=== PATIENT | male | born 1955 | race Caucasian/White ===

== ENCOUNTER 2022-08-24 06:04 | Inpatient (IN) ==
--- NOTE | 2022-07-16 13:58 | PAT Medication Instructions ---
Medication Instructions Date of Service July 16, 2022 Home Medications atorvastatin 20 mg tablet (Lipitor) 20 mg PO QPM esomeprazole magnesium 40 mg capsule,delayed release (Nexium) 40 mg PO QAM finasteride 5 mg tablet 5 mg PO DAILY tamsulosin 0.4 mg capsule 0.4 mg PO QAM aspirin 81 mg tablet,delayed release 81 mg PO QAM multivitamin 1 tab PO QAM oxycodone-acetaminophen 5 mg-325 mg tablet 1 tab PO TID Continue as directed finasteride 5 mg tablet 5 mg PO DAILY ASK your prescriber and surgeon aspirin 81 mg tablet,delayed release 81 mg PO QAM DO NOT take the morning of surgery multivitamin 1 tab PO QAM Take morning of surgery With a small sip of water, OTHERWISE NOTHING TO EAT OR DRINK AFTER MIDNIGHT: esomeprazole magnesium 40 mg capsule,delayed release (Nexium) 40 mg PO QAM tamsulosin 0.4 mg capsule 0.4 mg PO QAM oxycodone-acetaminophen 5 mg-325 mg tablet 1 tab PO TID Take evening before surgery atorvastatin 20 mg tablet (Lipitor) 20 mg PO QPM oxycodone-acetaminophen 5 mg-325 mg tablet 1 tab PO TID Other Notes If you have any questions please call us at [phone] or [phone] or [phone] or [phone]
--- NOTE | 2022-07-22 08:31 | Anesthesiology Consultation ---
Date of Service July 22, 2022 Assessment & Plan (1) Encounter for pre-operative examination: - pt reports sinus drainage, cough productive of brown sputum without hemoptysis and hoarseness, evaluated by primary care and Rx azithromycin. PCR COVID test at [facility] visit: negative. Pt instructed to call office if symptoms are not fully resolved 1-2 days before surgery. Chart Review Chart Review: Acceptable Risk for Surgery and Patient NOT seen in Pre Admission Testing Teaching & Discussion Pre-Anesthesia Teaching/Discussion Notes: Instructed NPO after midnight before surgery, except medications with 15 cc of water. Medication instructions provided according to the [facility] guidelines. History Surgery Operation Date: 08/24/22 08:00 Proposed Procedures p Percutaneous Endovascular Abdominal Aortic Aneurysm Repair - Moe Hogue MD Height/Weight Height: 6 ft Weight: 102.058 kg Allergies Allergy/AdvReac Type Severity Reaction Status Date / Time terfenadine [From Seldane] Allergy Unknown Verified 07/21/22 11:14 Medications Home Medications Medication Instructions Recorded Confirmed Last Taken atorvastatin 20 mg tablet (Lipitor) 20 mg PO QPM 07/09/19 07/21/22 Unknown esomeprazole magnesium 40 mg 40 mg PO QAM 07/09/19 07/21/22 Unknown capsule,delayed release (Nexium) finasteride 5 mg tablet 5 mg PO DAILY 07/09/19 07/21/22 Unknown tamsulosin 0.4 mg capsule 0.4 mg PO QAM 07/09/19 07/21/22 Unknown aspirin 81 mg tablet,delayed 81 mg PO QAM 07/16/22 07/21/22 Unknown release multivitamin 1 tab PO QAM 07/16/22 07/21/22 Unknown oxycodone-acetaminophen 5 mg-325 1 tab PO TID 07/16/22 07/21/22 Unknown mg tablet Past Medical History Medical History (Updated 07/22/22 @ 08:27 by Rosi Bustamante PA-C) Abdominal aortic aneurysm Juxtarenal abdominal aortic aneurysm 4.5 cm diameter, 06/16/22 ct abdomen pelvis BPH (benign prostatic hyperplasia) Depression GERD (gastroesophageal reflux disease) controlled, stable per pt History of COVID-19 X 2 (LAST EVENT APRIL 2022/RESOLVED) Hyperlipidemia Pulmonary embolism Sleep apnea Urinary frequency Patient denies h/o stroke, seizures, heart attack, heart failure, DM, HTN, or blood transfusions. Exercise / Class Metabolic Activity II 4-5 Yardwork/Stairs/Walk up hill (denies chest discomfort or shortness of breath with 1 FOS) Past Family History Family History Other No family history of adverse response to anesthesia Past Surgical History Surgical History H/O foot surgery LEFT TOE X 2 PINNING H/O sinus surgery History of appendectomy History of arthroscopy of left shoulder History of colonoscopy History of esophagogastroduodenoscopy (EGD) History of total hip arthroplasty RT/LEFT Past Anesthesia History No Hx of Anesthesia Complications and No Family Hx of Anesthesia Complications History of PONV No Hx of PONV and No Hx of Motion Sickness Social History Smoking Status: Former smoker tobacco type: cigarettes Smoking cigarettes per day: 10 Do You Dip or Chew Tobacco: No Smoking End Date: 06/12/21 Hx Alcohol Use: Yes alcohol intake frequency: holidays/special occasions only Hx Substance Use: No substance use type: does not use Review of Systems Patient denies chest pain, shortness of breath, dyspnea on exertion, fever, chills, pharyngitis, wheezing, or palpitations. Physical Exam Vital Signs Vitals BP 119/78 P 89 TEMP 98.6 SP02 95% on RA RESP 18 Physical Full cervical extension range of motion without pain TMD 3.5 finger breadths Mallampati Score 2 Dentition: intact, denies chipped or loose teeth, caps/crowns, implants or bridges Lungs: normal respiratory effort. Clear throughout to auscultation, no adventitious breath sounds Cardiac: regular rate and rhythm, no murmurs noted Carotid arteries: negative bruit bilat Lab Results Anesthesia Preop Results Results Anesthesia Widget: WBC 5.97 K/ul (4.8-10.8) 07/22/22 Hgb 13.8 g/dl (14.0-18.0) L 07/22/22 Hct 41.0 % (40.1-51.0) 07/22/22 Plt 146 K/uL (130-400) 07/22/22 Na 140 mmol/L (136-145) 07/22/22 K 4.1 mmol/L (3.5-5.1) 07/22/22 Cl 106 mmol/L (98-107) 07/22/22 CO2 27 mmol/L (21-32) 07/22/22 BUN 16 mg/dl (6-23) 07/22/22 Creat 0.93 mg/dl (0.6-1.4) 07/22/22 Glucose Level 97 mg/dl (70-99(Fasting)) 07/22/22 PT 10.3 Seconds (9.0-12.0) 07/22/22 PTT 25.6 Seconds (21.0-31.0) 07/22/22 INR 1.0 (0.9-1.1) 07/22/22 Blood Type A Positive 07/22/22 Antibody Screen NEGATIVE 07/22/22 Testing Electrocardiogram Date: 07/22/22 NSR, rate 75 bpm Incomplete RBBB Chest X-Ray Date: 07/22/22 The cardiomediastinal silhouette is unremarkable noting atherosclerotic calcification of the thoracic aorta. Emphysema and chronic interstitial thickening is similar to previous. The lungs and pleural spaces are otherwise clear. There is no pneumothorax. The bony thorax appears intact. A left shoulder arthroplasty is in place. IMPRESSION: Mild emphysematous change with no active disease in the chest. Other Testing Abdomen pelvis CT 06/16/22 No acute intra-abdominal abnormality Juxtarenal abdominal aortic aneurysm 4.5 cm diameter, significantly increased from previous Solid stool throughout the entire large bowel Left hydrocele COVID-19 Risk Screen Screening Information COVID-19 Screen Date: 07/22/22 Exposure 21 Days Family/Household +COVID Last 21 Days: No Exposure 10 Days Any COVID Exposure Last 10 Days: No Symptoms Last 10 Days Experienced COVID Sx Last 10 Days: Yes + COVID 0-90 Days COVID + in Last 0-90 Days: No
[~2022-08-24 06:04] MED LIST: LACTATED RINGER'S 1,000 ML IV SCH; ceFAZolin 2000MG 2,000 MG/15 ML SYR IV SCH
[2022-08-24] MEDS ORDERED: LIDOCAINE 2% MPF LOCAL 5 ML VIAL INFIL ONE (06:41)
[2022-08-24] MEDS ORDERED: ROCURONIUM BROMIDE 10 MG/ML 5 ML VIAL IV ONE (06:41)
[2022-08-24] MEDS ORDERED: MIDAZOLAM HCL 1 MG/ML 2ML VIAL ONE (06:41)
[2022-08-24] MEDS ORDERED: DEXAMETHASONE SOD INJ 4 MG/ML VIAL ONE (06:41)
[2022-08-24] MEDS ORDERED: HEPARIN SOD (PORCINE) 1000 UNIT/ML ONE ×3 (06:41→06:55)
[2022-08-24] MEDS ORDERED: ONDANSETRON INJ 2 MG/ML 2 ML VIAL ONE (06:41)
[2022-08-24] MEDS ORDERED: fentaNYL citrate 100 MCG/2 ML VIAL ONE (06:42)
--- NOTE | 2022-08-24 07:33 | History & Physical Report ---
Date of Service August 24, 2022 Assessment & Plan (1) AAA (abdominal aortic aneurysm) without rupture: Plan: Patient for PEVAR of his AAA. I have discussed the risks options and benefits of the procedure with the patient. The patient understands the risks options and benefits and agrees to the procedure. History of Present Illness Chief Complaint: AAA Primary Care Provider: Girish Melgar MD Mr Alcala is a 66-year-old gentleman who we have been seeing for his abdominal aortic aneurysm. He had an ultrasound last December which showed the aneurysm to be 4 cm in size. He recently had a CT of his abdomen which showed the aneurysm had grown to 4.5 cm in size. He is not having any symptoms from his aorta at this time. He denies any claudication and denies any symptoms of cerebrovascular sufficiency. Allergies Allergy/AdvReac Type Severity Reaction Status Date / Time terfenadine [From Seldane] Allergy Unknown Verified 08/24/22 06:24 Home Medications Medication Instructions Recorded Confirmed Type atorvastatin 20 mg tablet (Lipitor) 20 mg PO QPM 07/09/19 08/24/22 History esomeprazole magnesium 40 mg 40 mg PO QAM 07/09/19 08/24/22 History capsule,delayed release (Nexium) finasteride 5 mg tablet 5 mg PO HS 07/09/19 08/24/22 History tamsulosin 0.4 mg capsule 0.4 mg PO QAM 07/09/19 08/24/22 History aspirin 81 mg tablet,delayed 81 mg PO QAM 07/16/22 08/24/22 History release multivitamin 1 tab PO QAM 07/16/22 08/24/22 History oxycodone-acetaminophen 5 mg-325 1 tab PO TID 07/16/22 08/24/22 History mg tablet Past Med/Surg History Medical History Abdominal aortic aneurysm Juxtarenal abdominal aortic aneurysm 4.5 cm diameter, 06/16/22 ct abdomen pelvis BPH (benign prostatic hyperplasia) Depression GERD (gastroesophageal reflux disease) controlled, stable per pt History of COVID-19 X 2 (LAST EVENT APRIL 2022/RESOLVED) Hyperlipidemia Pulmonary embolism Sleep apnea Urinary frequency Surgical History H/O foot surgery LEFT TOE X 2 PINNING H/O sinus surgery History of appendectomy History of arthroscopy of left shoulder History of colonoscopy History of esophagogastroduodenoscopy (EGD) History of total hip arthroplasty RT/LEFT Family History Other No family history of adverse response to anesthesia Social History Smoking Status: Former smoker Tobacco Type: Cigarettes Cigarettes Per Day: 10; Smoking End Date: 06/12/21; Second Hand Exposure: Yes ( A CHILD); Do You Dip or Chew Tobacco: No; Hx Alcohol Use: No Hx Substance Use: No Preferred Language: Bruneian Operator Helper Required: No Beliefs That Will Affect Care: None Current Living Situation: Spouse current occupational status: employed current occupation: Maintenance Feels Safe at Home: Yes Safety Concerns: Feels Safe At This Time Assistive Devices: Glasses Review of Systems All systems reviewed & are unremarkable except as noted in HPI & below Physical Exam Constitutional: WD/WN, vitals as above Respiratory: normal respiratory effort, lungs clear to auscultation Cardiovascular: RRR, no murmur, no edema Vessels: normal peripheral pulses and abdominal aortic pulse present Extremities: normal capillary refill Gastrointestinal (Abdomen): Inspection/Auscultation: abdomen normal to inspection; abdomen not distended Percussion/Palpation: abdomen soft and + abdominal aortic enlargement; abdomen nontender Musculoskeletal: no cyanosis or clubbing, extremities motor strength 5/5 Neurologic: CN's II-XI intact bilaterally and moves all extremities Psychiatric: Orientation: alert and oriented x 3 Results & Data ([facility]) Vital Signs (Past 12 Hours) Vital Signs Temp Pulse Resp BP BP Pulse Ox O2 Del Method 08/24/22 06:30 36.7 C 81 20 136/96 125/82 95 Room Air
[2022-08-24] MEDS ORDERED: ATROPINE SULFATE 0.1 MG/ML 10ML SYR IV PRN (07:38)
[2022-08-24] MEDS ORDERED: ONDANSETRON INJ 2 MG/ML 2 ML VIAL IV PRN (07:38)
[2022-08-24] MEDS ORDERED: fentaNYL citrate 100 MCG/2 ML VIAL IV PRN (07:38)
[2022-08-24] MEDS ORDERED: ePHEDrine sulfate 50 MG/ML AMP IV PRN (07:38)
[2022-08-24] MEDS ORDERED: SUGAMMADEX SODIUM 200 MG/2 ML VIAL IV ONE (09:04)
[2022-08-24] MEDS ORDERED: VISIPAQUE IV PRN (09:08)
[2022-08-24] MEDS ORDERED: ARISTA ABSORBABLE HEMOSTAT 3GM TOP ONE (09:08)
--- NOTE | 2022-08-24 09:23 | Procedure Note ---
Angiogram Post Procedure Fluoroscopy Time (minutes): 4.5 Radiation (mGy): 198 Contrast: 80 Post Operative Report Pre & Post Diagnosis Operation Date: 08/24/22 08:00 Pre-Op Diagnosis: Abdominal Aortic Aneurysm Post-Op Diagnosis: Abdominal Aortic Aneurysm I identified the patient and participated in the time-out.: Yes Procedure Operation Date: 08/24/22 08:00 Actual Procedures p Percutaneous Endovascular Abdominal Aortic Aneurysm Repair, Mechanical Closure of Bilateral Femoral Arteries(Bilateral) - Moe Hogue MD Surgeon Moe Hogue MD Correctional Sergeant none Estimated Blood Loss 20 Findings Consistent with Post-Op Diagnosis Specimens none Anesthesia Type General Complications none Disposition Accompanied Patient To Recovery: No Disposition: Recovery Room Indications This is a 66-year-old gentleman who has had an abdominal aortic aneurysm. We have been following this. On his last study this has increased in size significantly. Due to the increase in size over short period of time and recommended repair. He is a candidate for percutaneous endograft repair. I have discussed the risks options and benefits of the procedure with the patient. The patient understands the risks options and benefits and agrees to the procedure. Description of Procedure The patient was brought to the OR and placed in supine position. Patient was intubated and general anesthesia was accomplished. Payne was placed by urology due to hypospadias. A safety timeout was performed to identify patient's name, date of and the correct procedure. Abdomen and groins were prepped and draped in sterile fashion. Ultrasound guided percutaneous access of the right groin was performed. The right common femoral artery was patent. A percutaneous puncture was made in the right common femoral artery using ultrasound. The depth finder for the Manta device was used to measure the depth of the puncture. It was found to be 4.5 cm. The depth finder was removed and the 8 Palestinian sheath inserted. We turned our attention to the left side and we similarly accessed the left common femoral artery. The left common femoral artery was patent. Using ultrasound left common femoral artery was punctured. The depth finder was used to measure the depth of the puncture of the left side and also found to be 4 cm from the skin edge. This was removed and 8 Palestinian sheath was inserted. Patient was heparinized with 8000 of IV heparin. Through the right groin, we advanced a soft Glidewire followed by a Kumpe catheter. The wire then was exchanged for a stiff Laura wire. We then cannulated the aorta from the left side using 035 Glidewire and a Kumpe catheter. Once this was placed in the super renal aorta the wire was exchanged to a Laura wire. We then upsized our access on the right side with a 16 Palestinian dilator and subsequently to 18 Palestinian dry seal sheath. The left groin sheath was then exchanged to a 12 Palestinian dry seal sheath. The sheaths were advanced all the way up in the aortic sac. A marker pig was inserted to the left groin. Aortography was performed. The level of the renal arteries were marked on the screen. This showed patency of both renal arteries and a acceptable neck for deployment of the graft. We advanced the device ([place] excluder c3 28.5 mm x 14.5 mm x 12 cm) through the right sheath. The shaft of the graft was then deployed. An aortogram was performed. Both renal arteries were visualized just above the top of the deployed graft. Aortogram confirmed good location of the proximal end of the graft. The pigtail was pulled back and the hooks were then deployed. Cannulation of the gate was then accomplished using an 035 glidewire and a Kumpke catheter. The Kumpe spun easily in the neck of the graft. The 035 Glidewire was removed and a Laura wire was reinserted. A marker pigtail was then inserted over the Wade wire. The 12 Palestinian sheath was then pulled down into the external iliac and an arteriogram was performed of the left iliac system. This identified the origin of the hypogastric and the left side. We then removed the pigtail. We reinserted a 12 Palestinian sheath dilator and advanced the sheath into the gate of the graft. Prior to inserting the contralateral limb we deployed the ipsilateral limb to complete the deployment of the graft. The device was then removed from the right groin. We then inserted an 16mm x 14.5 mm x 12 contralateral limb. The 12 Palestinian sheath was then pulled down to below the level of the contralateral limb. Contralateral limb was then deployed without difficulty. The 18 Palestinian sheath on the right side was then pulled down into the pelvis. Hand-injection was then performed to mari where the bifurcation of the common iliac artery was. We then chose a 16 x 14.5 x10 contralateral limb to extend the right side limb. The graft was advanced to the 18 Palestinian sheath. It was deployed with the distal end falling just above the iliac bifurcation. The Q50 balloon was then inserted through the left sheath. The proximal attachment site, the gate and the distal attachment site were ballooned with the Q50 balloon. The balloon was then removed. It was inserted through the right side 18 Palestinian sheath and then dilated the overlap of the limbs and the distal attachment site of the right limb. The balloon was then removed. The pigtail was then inserted through the left side to above the renal arteries. A final arteriogram was then performed which showed no evidence of a type I endoleak. Graft showed no evidence of narrowing throughout. An 035 Glidewire was then reinserted into the pigtail and the pigtail removed. The 12 Palestinian sheath was then pulled and a 14 Palestinian Manta device was inserted. This was deployed without difficulty. No bleeding was noted after deployment. The right groin sheath was then also pulled. An 18 Palestinian Manta device was inserted and deployed. No evidence of bleeding was seen on the right side either. Sterile dressings were applied to the wounds.The patient left the operation room in satisfactory condition and tolerated the procedure well. All needle and sponge counts were correct at the end of the procedure. Jenny Kramer Pac assisted due to lack of resident availability and was necessary for positioning, draping, retraction, wound closure deep layers, subcutaneous tissue, and skin closure and was necessary for assisting with the case. I attest to the content of the Intraoperative Record and any orders documented therein. Any exceptions are noted below.
[2022-08-24] MEDS ORDERED: LABETALOL HCL IV 5 MG/ML 20ML IV ONE (09:24)
[2022-08-24 09:54] LABS: Hematocrit (blood only) 36.5 % (42.0-52.0); Hemoglobin 12.2 g/dl (14.0-18.0)
--- NOTE | 2022-08-24 10:08 | Anesthesiology Progress Note ---
Date of Service August 24, 2022 Anesthesia Post Procedure Vital Signs Vital Signs: Temp Pulse Pulse Resp BP BP Pulse Ox 08/24/22 09:45 97.7 F 74 14 109/72 97 08/24/22 09:35 76 18 113/77 96 08/24/22 09:25 77 16 110/84 98 08/24/22 09:18 96.8 F L 75 19 130/76 98 08/24/22 06:30 98.1 F 81 20 136/96 125/82 95 O2 Del Method O2 Flow Rate 08/24/22 09:45 Nasal Cannula 2 08/24/22 09:35 Room Air 08/24/22 09:25 Oxymask 4 08/24/22 09:18 Oxymask 7 08/24/22 06:30 Room Air Transfer of Care Handoff Completed per policy Notes Mental Status: alert / awake / arousable and participated in evaluation Patient Amnestic to Procedure: Yes Nausea / Vomiting: adequately controlled Pain: adequately controlled Airway Patency, RR, SpO2: stable & adequate BP & HR: stable & adequate Hydration State: stable & adequate Anesthetic Complications: no major complications apparent and Pt Satisfied with anesthetic care
[2022-08-24] MEDS: D5W AND 1/2NSS 1,000 ML IV SCH ×2 (11:05→19:06)
--- NOTE | 2022-08-24 12:47 | Critical Care Consultation ---
Date of Consultation August 24, 2022 Assessment & Plan (1) AAA (abdominal aortic aneurysm) without rupture: Patient postop percutaneous endovascular repair of the abdominal aorta. Defer pain control, blood pressure parameters and antiplatelet management to vascular surgery. Monitor for postop ileus. Monitor for signs of bleeding. ICU will continue to follow as the patient remains in the ICU. Thank you for the consult. Please call with questions. History of Present Illness Reason for Consultation: Postop monitoring status post PEVAR Attending Physician: Moe Hogue MD History of Present Illness 66-year-old male with a history of abdominal aortic aneurysm seen on ultrasound measuring 4 cm. The aneurysm 3 to 4.5 cm on the more recent CT of the abdomen. Patient also has a history of hyperlipidemia, sinusitis, bronchitis and degenerative arthritis of the back and hip. He is now postop. Vascular surgery noted approximately 20 cc of blood loss intra procedurally. Art line is in place. No significant hemodynamic issues at this time. Patient without significant complaints. Saturating well on 2 L of oxygen. Allergies Allergy/AdvReac Type Severity Reaction Status Date / Time terfenadine [From Seldane] Allergy Unknown Verified 08/24/22 07:48 Home Medications Medication Instructions Recorded Confirmed Type atorvastatin 20 mg tablet (Lipitor) 20 mg PO QPM 07/09/19 08/24/22 History esomeprazole magnesium 40 mg 40 mg PO QAM 07/09/19 08/24/22 History capsule,delayed release (Nexium) finasteride 5 mg tablet 5 mg PO HS 07/09/19 08/24/22 History tamsulosin 0.4 mg capsule 0.4 mg PO QAM 07/09/19 08/24/22 History aspirin 81 mg tablet,delayed 81 mg PO QAM 07/16/22 08/24/22 History release multivitamin 1 tab PO QAM 07/16/22 08/24/22 History oxycodone-acetaminophen 5 mg-325 1 tab PO TID 07/16/22 08/24/22 History mg tablet Patient History Medical History Abdominal aortic aneurysm Juxtarenal abdominal aortic aneurysm 4.5 cm diameter, 06/16/22 ct abdomen pelvis BPH (benign prostatic hyperplasia) Depression GERD (gastroesophageal reflux disease) controlled, stable per pt History of COVID-19 X 2 (LAST EVENT APRIL 2022/RESOLVED) Hyperlipidemia Pulmonary embolism Sleep apnea Urinary frequency Surgical History H/O foot surgery LEFT TOE X 2 PINNING H/O sinus surgery History of appendectomy History of arthroscopy of left shoulder History of colonoscopy History of esophagogastroduodenoscopy (EGD) History of total hip arthroplasty RT/LEFT Family History Other No family history of adverse response to anesthesia Social History Smoking Status: Former smoker Tobacco Type: Cigarettes Cigarettes Per Day: 10; Smoking End Date: 06/12/21; Second Hand Exposure: Yes ( A CHILD); Do You Dip or Chew Tobacco: No; Hx Alcohol Use: No Hx Substance Use: No Preferred Language: Kiswahili Energy Technician Required: No Beliefs That Will Affect Care: None Current Living Situation: Spouse current occupational status: employed current occupation: Maintenance Feels Safe at Home: Yes Safety Concerns: Feels Safe At This Time Assistive Devices: Glasses Review of Systems Review of Systems: All systems reviewed & are unremarkable except as noted in HPI & below Physical Exam Physical Exam: Constitutional: Patient appears to be of their stated age. Patient is in no apparent distress. Patient is well-developed. Eyes: Pupils are equal round and reactive to light. Conjunctivae are normal. Anicteric sclera. Ears nose, mouth and throat: Mallampati class 2. Normal posterior oropharynx. Uvula is midline. Neck: Trachea is midline. Visual inspection is normal. Respiratory: Clear to auscultation bilaterally. No use of accessory muscles. No significant clubbing noted. Cardiovascular: Regular rate and rhythm. No murmurs. No edema. Gastrointestinal: Normal bowel sounds, soft, nontender and nondistended. No hepatosplenomegaly noted. Musculoskeletal: No cyanosis. Patient is able to move all extremities. Strength is 5 out of 5 in the upper and lower extremities. Skin: No rashes, warm dry and intact. Neurologic: No obvious focal neurological deficits seen. Psychiatric: Alert and oriented x3 with a euthymic affect. Results & Data Results & Data ([facility]) Vital Signs (Past 12 Hours) Vital Signs Temp Pulse Pulse Pulse Resp BP BP 08/24/22 12:00 82 16 08/24/22 12:00 123/80 08/24/22 11:30 69 17 08/24/22 11:00 70 15 08/24/22 11:00 119/87 08/24/22 10:30 76 16 08/24/22 10:18 78 27 H 08/24/22 10:00 08/24/22 09:45 36.5 C 74 14 08/24/22 09:35 76 18 08/24/22 09:25 77 16 08/24/22 09:18 36 C L 75 19 08/24/22 06:30 36.7 C 81 20 136/96 BP Pulse Ox O2 Del Method O2 Flow Rate 08/24/22 12:00 94 Nasal Cannula 2 08/24/22 12:00 08/24/22 11:30 95 08/24/22 11:00 95 08/24/22 11:00 08/24/22 10:30 95 Nasal Cannula 2 08/24/22 10:18 93 08/24/22 10:00 Nasal Cannula 2 08/24/22 09:45 109/72 97 Nasal Cannula 2 08/24/22 09:35 113/77 96 Room Air 08/24/22 09:25 110/84 98 Oxymask 4 08/24/22 09:18 130/76 98 Oxymask 7 08/24/22 06:30 125/82 95 Room Air Coding Level of Care Code INP/OBS CONSULT LVL 2, 35 MIN Diagnoses AAA (abdominal aortic aneurysm) without rupture I71.40
[2022-08-24] MEDS: ceFAZolin 2000MG 2,000 MG/15 ML SYR IV SCH (16:03)
[2022-08-24] MEDS: oxyCODONE/ACETAMINOPHEN 5mg/325mg TAB PO PRN (20:31)
[2022-08-24] MEDS ORDERED: ATORVASTATIN 20 MG TAB PO SCH (21:00)
[2022-08-24] MEDS ORDERED: FINASTERIDE 5 MG TAB PO SCH (21:00)
[2022-08-25] MEDS: ceFAZolin 2000MG 2,000 MG/15 ML SYR IV SCH (00:38)
[2022-08-25] MEDS: oxyCODONE/ACETAMINOPHEN 5mg/325mg TAB PO PRN ×2 (00:39→08:52)
[2022-08-25] MEDS: D5W AND 1/2NSS 1,000 ML IV SCH (02:43)
[2022-08-25 06:31] LABS: Basophils # (auto) 0.02 K/uL (0-0.2); Basophils % (auto) 0.2 %; Eosinophils # (auto) 0.04 K/uL (0-0.50); Eosinophils % (auto) 0.4 %; Hematocrit (blood only) 33.7 % (42.0-52.0); Hemoglobin 11.4 g/dl (14.0-18.0); Immature Granulocytes # (auto) 0.04 K/uL (0.01-0.20); Immature Granulocytes % (auto) 0.4 %; Lymphocytes # (auto) 2.38 K/uL (1.2-3.4); Lymphocytes % (auto) 21.4 %; Mean Corpuscular Hemoglobin 28.4 pg (25.0-34.0); Mean Corpuscular Hgb Conc 33.8 g/dL (32.0-36.0); Mean Corpuscular Volume 83.8 fL (80.0-100.0); Mean Platelet Volume 8.9 fL (9.4-12.4); Monocytes # (auto) 1.01 K/uL (0.11-0.59); Monocytes % (auto) 9.1 %; Neutrophils # (auto) 7.64 K/uL (1.40-6.50); Neutrophils % (auto) 68.5 %; Platelet Count 125 K/uL (130-400); RDW Coefficient of Variation 12.4 % (11.5-14.5); RDW Standard Deviation 37.5 fL (36.4-46.3); Red Blood Count 4.02 M/uL (4.70-6.10); White Blood Count 11.13 K/ul (4.8-10.8)
[2022-08-25 06:35] LABS: BUN Creatinine Ratio 24.1 (10-20); Calcium 9.4 mg/dl (8.5-10.1); Creatinine Clr Calc Pharmacy 84.8 ml/min; Est GFR (Non-African American) 71.6 ml/min
--- NOTE | 2022-08-25 07:48 | Surgery Progress Note ---
Date of Service August 25, 2022 Assessment & Plan (1) AAA (abdominal aortic aneurysm) without rupture: Plan: Pt now POD #1 after PEVAR, doing well post op. OK for d/c home today. Admission and Anticipated Discharge Date Admission Date: August 24, 2022 Subjective 66 yo m POD #1 after PEVAR, seen in f/u today. Pt denies any new complaints. Has taken PO well, ambulating well without significant pain. VSS Review of Systems Review of Systems: All systems reviewed & are unremarkable except as noted in HPI & below Physical Exam Constitutional: WD/WN, vitals as above no acute distress Respiratory: normal respiratory effort, lungs clear to auscultation normal respiratory effort; no respiratory distress Auscultation: lungs clear to auscultation bilaterally Cardiovascular: RRR, no murmur, no edema Rate/Rhythm: regular rate and regular rhythm Heart Sounds: no murmur Vessels: normal peripheral pulses and abdominal aortic pulse present Extremities: normal capillary refill Gastrointestinal (Abdomen): Inspection/Auscultation: abdomen normal to inspection; abdomen not distended Percussion/Palpation: abdomen soft and + abdominal aortic enlargement; abdomen nontender Musculoskeletal: no cyanosis or clubbing, extremities motor strength 5/5 Spine: normal cervical ROM Skin: + incision (BL groin punctures C/D/I. No hematoma) Neurologic: CN's II-XI intact bilaterally and moves all extremities Psychiatric: Orientation: alert and oriented x 3 Results & Data ([facility]) Vital Signs (Past 12 Hours) Vital Signs Pulse Resp BP Pulse Ox 08/25/22 07:00 68 18 94 08/25/22 07:00 126/89 08/25/22 05:00 64 16 109/62 94 08/25/22 04:00 69 14 121/77 92 08/25/22 03:00 72 18 104/76 87 L 08/25/22 02:00 76 17 112/74 92 08/25/22 01:00 69 19 114/76 92 08/25/22 00:00 68 17 111/62 94 08/24/22 23:10 67 17 125/77 93 08/25/22 00:00 64 08/24/22 20:00 68 19 118/78 94
--- NOTE | 2022-08-25 07:56 | Discharge Summary ---
Date of Service August 25, 2022 Admission HPI Per Admitting Provider Mr Alcala is a 66-year-old gentleman who we have been seeing for his abdominal aortic aneurysm. He had an ultrasound last December which showed the aneurysm to be 4 cm in size. He recently had a CT of his abdomen which showed the aneurysm had grown to 4.5 cm in size. He is not having any symptoms from his aorta at this time. He denies any claudication and denies any symptoms of cerebrovascular sufficiency. Admission Exam Per Admitting Provider Constitutional: WD/WN, vitals as above Respiratory: normal respiratory effort, lungs clear to auscultation Cardiovascular: RRR, no murmur, no edema Vessels: normal peripheral pulses and abdominal aortic pulse present Extremities: normal capillary refill Gastrointestinal (Abdomen): Inspection/Auscultation: abdomen normal to inspection; abdomen not distended Percussion/Palpation: abdomen soft and + abdominal aortic enlargement; abdomen nontender Musculoskeletal: no cyanosis or clubbing, extremities motor strength 5/5 Neurologic: CN's II-XI intact bilaterally and moves all extremities Psychiatric: Orientation: alert and oriented x 3 Principal Diagnosis 1. s/p PEVAR 2. AAA Discharge Exam Constitutional WD/WN, vitals as above no acute distress Respiratory normal respiratory effort, lungs clear to auscultation normal respiratory effort; no respiratory distress Auscultation: lungs clear to auscultation bilaterally Cardiovascular RRR, no murmur, no edema Rate/Rhythm: regular rate and regular rhythm Heart Sounds: no murmur Vessels: normal peripheral pulses and abdominal aortic pulse present Extremities: normal capillary refill Gastrointestinal (Abdomen) Inspection/Auscultation: abdomen normal to inspection; abdomen not distended Percussion/Palpation: abdomen soft and + abdominal aortic enlargement; abdomen nontender Musculoskeletal no cyanosis or clubbing, extremities motor strength 5/5 Spine: normal cervical ROM Skin + incision (BL groin punctures C/D/I. No hematoma) Neurologic CN's II-XI intact bilaterally and moves all extremities Psychiatric Orientation: alert and oriented x 3 Discharge Data Allergies Allergy/AdvReac Type Severity Reaction Status Date / Time terfenadine [From Seldane] Allergy Unknown Verified 08/24/22 07:48 Consultations 08/24/22 10:19 Consult Stain Dipper Routine Procedures Performed Operation Date: 08/24/22 08:00 Actual Procedures p Percutaneous Endovascular Abdominal Aortic Aneurysm Repair, Mechanical Closure of Bilateral Femoral Arteries(Bilateral) - Moe Hogue MD Ordered Studies 08/24/22 07:18 EV AAA repair aorta only Routine US EV guide vascular access Routine Hospital Course (1) AAA (abdominal aortic aneurysm) without rupture: Pt now POD #1 after PEVAR, doing well post op. OK for d/c home today. Total Time Total Time Spent Total Time Spent (In Minutes): 0 Discharge Plan Discharge Items Patient Disposition: Home - Self-Care Reason For Visit: Abdominal Aortic Aneurysm Discharge Diagnosis: 1. s/p Percutaneous Endovascular Aneurysm Repair 2. Abdomina Aortic Aneurysm Activity: Per Instructions section Non-emergency contact: Primary Care Provider and Surgeon Call non-emergency contact if: you have any medication questions, your pain is not controlled, your pain is concerning for you, you have a fever, your wound has increased redness and your wound has increased drainage Follow-up/Referrals: Moe Hogue MD [Physician] - (Follow up with Dr Hogue or Jenny Kramer PA-C within 2 weeks) Girish Melgar MD [Primary Care Provider] - Diet: Regular and Heart Healthy Addtl Attending Provider Instructions: SPECIAL CARE INSTRUCTIONS: Medications: * Continue to take your medications as directed. Incision/Puncture Site Care: * You will have an incision or puncture in each of your groins. Liquid glue will be used to seal your incisions/puncture site. This will lift off as the incisions/puncture sites heal. * If Liquid glue is not used, there will be small dressings covering your incisions. After you get home, you may remove the dressings and shower - allowing the warm soapy water to run over it. * Be sure to dry the sites well and keep them dry. * DO NOT SOAK IN A TUB/POOL/etc. UNTIL ALL SURGICAL SITES ARE HEALED. DO NOT REMOVE THE GLUE UNTIL THE INCISIONS HEAL. Restrictions: * Limit yourself to bobbin drier activity for the first week. * You may walk and go up and down steps. * Avoid excessive bending or movement at the level of the incisions or punctures. Risks and Possible Complications: * Infection/Drainage/Bleeding - Drainage or bleeding from the incisions/puncture site should be minimal. If you have excessive bleeding or drainage, call our office ([phone]) right away. * Pain/Numbness - You may experience some mild pain or soreness at your incision sites. You may also have some numbness around the incisions or into the insides of your thighs. Bruising is normal and should resolve within 2 weeks. * Changes in Appetite or Bowel Habits - Mostly related to anesthesia and pain medication, some patients have reported decreased appetite and/or problems with constipation. These symptoms usually improve over a few weeks. Remembering to take an [id number] stool softener, as directed, will help you to avoid constipation. Call our office and seek emergent treatment if you develop: * Fever or chills * Have a temperature greater than 101 degrees F * Any redness or purulent drainage from your incisions or punctures * Severe abdominal, chest or back pain SKIN IRRITATION: * You may experience some redness and/or swelling in the area where radiation was administered. If any skin irritation occurs, please contact your family physician. You will be receiving a call from the Vascular Surgery Nurse after you are discharged. FOLLOW UP VISIT: It is important for you to keep your follow up appointments with your medical provider. Keep any scheduled doctor appointments. Pending Studies at Discharge: No Stand-Alone Forms: My [facility], Smoking Cessation Medications and DC Order Prescriptions: Continued finasteride 5 mg tablet 5 mg PO HS atorvastatin [Lipitor] 20 mg tablet 20 mg PO QPM esomeprazole magnesium [Nexium] 40 mg capsule,delayed release(DR/EC) 40 mg PO QAM tamsulosin 0.4 mg capsule 0.4 mg PO QAM multivitamin Tablet 1 tab PO QAM aspirin [Aspir-81] 81 mg Tablet,Delayed Release (Dr/Ec) 81 mg PO QAM oxycodone-acetaminophen 5-325 mg Tablet 1 tab PO TID Discharge Orders: Discharge Order (Routine); Ordered 08/25/22 Ordered By: Jenny Kramer Admission Data Admit Date/Time: 08/24/22 07:33 Attending Provider: Moe Hogue Admit Provider: Moe Hogue Primary Care Provider: Girish Melgar Other Providers: Boo Alford ; Charlie Al ; Stefan Zuniga ; Kenny Moreno ; Demarcus Cason ; Tae Orosco ; Lizett Durand ; Renan Holland ; Kiki Dejesus
[2022-08-25] MEDS ORDERED: PANTOprazole 40 MG TAB PO SCH (09:00)
[2022-08-25] MEDS ORDERED: TAMSULOSIN HCL 0.4 MG CAP PO SCH (09:00)
[2022-08-25] MEDS ORDERED: MULTIVITAMIN TAB PO SCH (09:00)
[2022-08-25] MEDS ORDERED: ASPIRIN 81 MG ECTAB PO SCH (09:00)
== END 2022-08-25 09:30 | disposition home or self-care (01) | DRG 269 ==
LOC: ASU 06:04 → 1E 07:33